=== PATIENT | female | born 1965 | race Caucasian/White ===

== ENCOUNTER 2018-04-03 12:36 | Emergency (ER) | payer OTHER ==
[2018-04-03] MEDS ORDERED: ASPIRIN 81 MG TABLET, CHEWABLE PO ONE (13:08)
[2018-04-03] MEDS ORDERED: NITROGLYCERIN 2% OINTMENT 1 GM PACKET TP ONE (13:08)
--- NOTE | 2018-04-03 13:09 | ER Document Report ---
ED Medical Screen (RME) - General Chief Complaint: Chest Pain Stated Complaint: CHEST PAIN Time Seen by Provider: 04/03/18 13:04 Notes: RAPID MEDICAL EVALUATION DISCLOSURE I have seen this patient as part of a Rapid Medical Evaluation and, if applicable, placed any initially appropriate orders. The patient will be seen and fully evaluated, including a full history and physical exam, by a provider ( in Main ED or Fast Track) when a room becomes available. 52-year-old female PMH CAD here with complaints of midsternal sharp chest pain radiating up to the right side of the neck and right shoulder ongoing for the past 1 hour. She was driving when the symptoms started. Symptoms worse with exertion but not breathing. She did take 1 baby aspirin earlier this morning but since symptom onset she has not taken anything for the pain. She only has slight pain at this time. She reports that she is scheduled to have a stent placed by Dr. Bush in the very near future. EXAM CTAB RRR TRAVEL OUTSIDE OF THE [place] IN LAST 30 DAYS: No Physical Exam - Vital signs Vitals: Temp Pulse Resp BP Pulse Ox 98.0 F 79 16 131/89 H 99 04/03/18 12:49 04/03/18 12:49 04/03/18 12:49 04/03/18 12:49 04/03/18 12:49 Course - Vital Signs Vital signs: Temp Pulse Resp BP Pulse Ox 98.0 F 79 16 131/89 H 99 04/03/18 12:49 04/03/18 12:49 04/03/18 12:49 04/03/18 12:49 04/03/18 12:49 Doctor's Discharge - Discharge Referrals: PAT HIDALGO NP [Primary Care Provider] - Follow up as needed
--- NOTE | 2018-04-03 13:37 | EKG REPORT ---
SEVERITY:- NORMAL ECG - SINUS RHYTHM : Confirmed by: Enmanuel Blackmon MD 03-Apr-2018 13:36:26
[2018-04-03 13:44] LABS: ABSOLUTE EOSINOPHILS # (AUTO) 0.1 10^3/uL (0.0-0.6); ABSOLUTE LYMPHOCYTES (AUTO) 1.4 10^3/uL (0.5-4.7); ABSOLUTE MONOCYTES (AUTO) 0.4 10^3/uL (0.1-1.4); BASOPHILS % (AUTO) 0.4 % (0-2); EOSINOPHILS % (AUTO) 1.7 % (0-6); HEMATOCRIT 41.9 % (36.0-47.0); HEMOGLOBIN 14.2 g/dL (12.0-15.5); LYMPHOCYTES % (AUTO) 23.9 % (13-45); MEAN CORPUSCULAR HGB CONC 33.9 g/dL (32.0-36.0); MEAN CORPUSCULAR VOLUME 83 fl (80-97); MONOCYTES % (AUTO) 6.8 % (3-13); PLATELET COUNT 230 10^3/uL (150-450); RED BLOOD COUNT 5.08 10^6/uL (3.72-5.28); RED CELL DISTRIBUTION WIDTH 13.5 % (11.5-14.0); SEGMENTED NEUTROPHILS % (AUTO) 67.2 % (42-78); TOTAL CELLS COUNTED % (AUTO) 100 %
--- NOTE | 2018-04-03 14:03 | RADIOLOGY REPORT (SQ) ---
EXAM DESCRIPTION: CHEST 2 VIEWS COMPLETED DATE/TIME: 04/03/2018 1:49 pm REASON FOR STUDY: CP SOB COMPARISON: PA chest 04/14/2009 Two-view chest 04/10/2009 EXAM PARAMETERS: NUMBER OF VIEWS: two views TECHNIQUE: Digital Frontal and Lateral radiographic views of the chest acquired. RADIATION DOSE: NA LIMITATIONS: none FINDINGS: LUNGS AND PLEURA: No opacities, masses or pneumothorax. No pleural effusion. MEDIASTINUM AND HILAR STRUCTURES: No masses or contour abnormalities. HEART AND VASCULAR STRUCTURES: Heart normal size. No evidence for failure. BONES: No acute findings. HARDWARE: None in the chest. OTHER: No other significant finding. IMPRESSION: NO ACUTE RADIOGRAPHIC FINDING IN THE CHEST. TECHNICAL DOCUMENTATION: JOB ID: [id number] [employer]- All Rights Reserved Reading location - IP/workstation name: [email or web address]
[2018-04-03 14:04] LABS: ANION GAP 14 (5-19); BLOOD UREA NITROGEN 15 mg/dL (7-20); CALCIUM 10.1 mg/dL (8.4-10.2); CARBON DIOXIDE 28 mmol/L (22-30); CHLORIDE 99 mmol/L (98-107); GLUCOSE 102 mg/dL (75-110); POTASSIUM 4.4 mmol/L (3.6-5.0); SODIUM 140.6 mmol/L (137-145)
[2018-04-03 14:15] LABS: NT PRO BNP 21 pg/mL (5-900); TROPONIN I < 0.012 ng/mL
[2018-04-03] MEDS ORDERED: ACETAMINOPHEN 325 MG TABLET PO ONE (14:47)
--- NOTE | 2018-04-03 16:09 | ER Document Report ---
ED General - General Chief Complaint: Chest Pain Stated Complaint: CHEST PAIN Time Seen by Provider: 04/03/18 13:04 Notes: Patient says that about 1230 today, while driving her car, she suddenly had some chest pain in the upper anterior neck down to the substernal region and into the epigastric region of her abdomen. She says that it felt like being stabbed with a knife. It lasted about 10 minutes and went away. At this time, she had stopped the car. She had another episode lasting about 10 minutes so she came to the emergency department. She says that she had a short similar discomfort, sharp like a knife, and the anterior chest while here in the waiting room and after it went away, she no longer had any subsequent chest pains. Patient says that she is scheduled for a cardiac cath next in [place]. The reason for the cath is that she had a stress test done about 3 weeks ago that was reportedly positive. The reason for the stress test was because of family history of stroke and heart disease and high cholesterol and the patient has high cholesterol as well. She has not had any chest pains or symptoms that suggest a heart problem. She is occasionally had similar sharp pains over the last year or 2, off and on. Denies any shortness of breath or difficulty breathing. Does have a headache, but they put nitroglycerin on her upper left chest while in the waiting area here. Patient has high blood pressure, high cholesterol, and depression. She takes a baby aspirin daily. Does not smoke. Has had an appendectomy, hysterectomy, cholecystectomy. Also surgery on her back. TRAVEL OUTSIDE OF THE [place] IN LAST 30 DAYS: No - Related Data Allergies/Adverse Reactions: acetaminophen [From Vicodin] Allergy (Verified 04/03/18 13:10) Beta-Blockers (Beta-Adrenergic Bloc Allergy (Verified 04/03/18 13:10) hydrocodone [From Vicodin] Allergy (Verified 04/03/18 13:10) Penicillins Allergy (Verified 04/03/18 13:10) Past Medical History - Social History Smoking Status: Never Smoker Chew tobacco use (# tins/day): No Frequency of alcohol use: None Drug Abuse: None Family History: Reviewed & Not Pertinent Patient has suicidal ideation: No Patient has homicidal ideation: No - Past Medical History Cardiac Medical History: Reports: Hx Hypercholesterolemia, Hx Hypertension Denies: Hx Coronary Artery Disease Endocrine Medical History: Denies: Hx Diabetes Mellitus Type 1 Psychiatric Medical History: Reports: Hx Depression - Denies anxiety Past Surgical History: Reports: Hx Appendectomy, Hx Cholecystectomy, Hx Hysterectomy, Hx Orthopedic Surgery Review of Systems - Review of Systems Notes: REVIEW OF SYSTEMS: CONSTITUTIONAL : Denies fever. EENT: Denies eye, ear, nose or mouth or throat pain or other symptoms. CARDIOVASCULAR: See HPI. No chest wall tenderness to press. RESPIRATORY: Denies cough, chest congestion, or shortness of breath. GASTROINTESTINAL: Denies abdominal pain or nausea, vomiting, or diarrhea. GENITOURINARY: Denies difficulty or painful urinating, urinary frequency, blood in urine. MUSCULOSKELETAL: Denies back or neck pain. Denies joint pain or swelling. SKIN: Denies rash or skin lesions. NEUROLOGICAL: Denies LOC or altered mental status. Has headache since Nitropaste applied.. Denies sensory loss or motor deficits. ALL OTHER SYSTEMS REVIEWED AND NEGATIVE. Physical Exam - Vital signs Vitals: Temp Pulse Resp BP Pulse Ox 98.0 F 79 16 131/89 H 99 04/03/18 12:49 04/03/18 12:49 04/03/18 12:49 04/03/18 12:49 04/03/18 12:49 Interpretation: Normal - Notes Notes: PHYSICAL EXAMINATION: GENERAL: Well-appearing, in no acute distress. Seems anxious to me. Vital signs are all normal. HEAD: Atraumatic, normocephalic. EYES: Pupils equal round and reactive to light, extraocular movements intact. ENT: oropharynx clear without exudates. Moist mucous membranes. NECK: Normal range of motion, supple. LUNGS: Breath sounds clear and equal bilaterally. No chest wall tenderness to press. HEART: Regular rate and rhythm without murmurs. ABDOMEN: Soft, nontender. No guarding or rebound. No masses. BACK: No tenderness throughout entire back. EXTREMITIES: Normal range of motion without pain. Negative Homans bilaterally. No pain or lower leg swelling. No evidence of blood clots. NEUROLOGICAL: Normal speech, normal gait. Normal sensory, motor, and reflex exams. Awake, alert, and oriented x3. Cranial nerves normal. PSYCH: Normal mood, normal affect. SKIN: Warm, dry, no rashes. Course - Re-evaluation Re-evalutation: 04/03/18 19:04 Patient's repeat troponin is identical to the first result. Patient is feeling fine. Has not had any more pain since she was put in her bed here and even after the nitroglycerin paste was removed, patient is not having any chest pains. - Vital Signs Vital signs: Temp Pulse Resp BP Pulse Ox 97.9 F 79 17 119/84 95 04/03/18 19:09 04/03/18 12:49 04/03/18 19:01 04/03/18 19:01 04/03/18 19:01 - Laboratory Result Diagrams: 04/03/18 13:30 04/03/18 13:30 Laboratory results interpreted by me: 04/03/18 13:30 Creatinine 0.43 L - Diagnostic Test Radiology results interpreted by wa: 04/03/18 16:13 Chest x-ray is normal. - EKG Interpretation by Ga EKG shows normal: Sinus rhythm Rate: Normal Rhythm: NSR Additional EKG results interpreted by wa: 04/03/18 16:13 EKG is normal. Discharge - Discharge Clinical Impression: Chest pain, non-cardiac Condition: Stable Disposition: HOME, SELF-CARE Additional Instructions: CHEST PAIN OF UNCLEAR CAUSE: The exact cause of your chest pain isn't clear. Fortunately, there is no evidence of a dangerous medical condition. Further testing may be required to find the source of the pain. Most often, we find that this pain is coming from the chest wall -- the muscles or rib joints in the chest. But chest pain can come from the lung and lung lining, the esophagus, the heart valves or heart lining, and even the stomach or gallbladder. Rest. Eat lightly until the pain is gone. We may prescribe medicine for pain and inflammation. You should call the physician immediately if the pain radiates to the shoulder, jaw or arms; if you start to run a fever or develop a cough; or if you develop shortness of breath, or other new or alarming symptoms. NORMAL EXAM AND WORKUP: At this time, your examination and workup show no significant abnormality. No significant abnormal physical findings were noted. All laboratory, EKG, and imaging (x-ray, CT scans, ultrasound) studies that were ordered show no significant abnormality. Although your examination and all studies that were ordered showed no significant abnormal finding, there are no examinations and no studies that are 100% accurate. There is always the possibility that some abnormality could exist and not be detected with physical examination or within the limits and capabilities of laboratory and other studies. You should return or follow up as you were instructed on your visit today for further evaluation if your symptoms do not resolve. CHEST WALL PAIN: Your chest pain may be coming from the chest wall. This is often caused by straining the muscles or joints in the chest during physical activity, direct trauma, coughing, or vigorous vomiting. Persons with arthritis are especially prone to this type of pain, due to inflammation of the cartilage joints near the breast bone. Occasionally, no cause can be found. Rest from strenuous physical activity. This kind of chest pain is usually made worse by movement of the chest. Depending on the symptoms, we may prescribe medicine for pain, muscle relaxation, and antiinflammatory effects. If the pain is new, and seems to be due to muscle strain, cold packs can help. Otherwise, apply gentle warmth to the painful area for 15 minutes every hour or two. You should call contact the doctor immediately if things change. Further evaluation is needed if you develop a fever or cough, if the nature of the pain changes, or if you become short of breath. ASPIRIN: Aspirin has been shown to have a beneficial effect on blood circulation by reducing the clotting effect of platelets in the blood. These beneficial effects can be achieved by taking just a single baby (81 mg) aspirin a day. It is recommended that any person over the age of forty take a single baby aspirin every day for heart and brain circulation, unless you are allergic to aspirin or have some significant bleeding disorder. It is strongly recommended that people who have proven cardiac or blood circulation disturbances should take a baby aspirin every day. FOLLOW-UP CARE: If you have been referred to a physician for follow-up care, call the physician s office for an appointment as you were instructed or within the next two days. If you experience worsening or a significant change in your symptoms, notify the physician immediately or return to the Emergency Department at any time for re-evaluation. Keep your appointment to have your cardiac catheterization done next week, as scheduled. If you develop new or worsening symptoms that are of concern to you, return for us to evaluate your condition at any time. Referrals: PAT HIDALGO NP [NURSE PRACTITIONER] - Follow up as needed
[2018-04-03 19:07] VITALS: BP 119/84
== END 2018-04-03 19:10 | disposition home or self-care (01) ==
LOC: ER 12:36
DX: R07.89 Other chest pain (principal); M54.2 Cervicalgia; R10.13 Epigastric pain; R51 Headache; I10 Essential (primary) hypertension; E78.00 Pure hypercholesterolemia, unspecified; Z79.82 Long term (current) use of aspirin; Z82.49 Family history of ischemic heart disease and other diseases of the circulatory system; Z82.3 Family history of stroke; Z88.6 Allergy status to analgesic agent; Z88.8 Allergy status to other drugs, medicaments and biological substances; Z88.5 Allergy status to narcotic agent; Z88.0 Allergy status to penicillin; Z90.49 Acquired absence of other specified parts of digestive tract
CPT/HCPCS: 36415; 71046; 80048; 83880; 84484; 85025; 93005; 93010; 99285

== ENCOUNTER 2019-07-09 23:07 | Emergency (ER) | payer OTHER ==
[2019-07-10] MEDS ORDERED: DIAZEPAM INJ 10 MG/2 ML DISP.SYRIN IV ONE (03:03)
[2019-07-10] MEDS ORDERED: KETOROLAC TROMETHAMINE INJ/PF 30 MG/1 ML SDV IV ONE (03:03)
--- NOTE | 2019-07-10 03:14 | ER Document Report ---
ED General - General Chief Complaint: Headache Stated Complaint: HEADACHE Time Seen by Provider: 07/10/19 02:46 Mode of Arrival: Medic Information source: Patient TRAVEL OUTSIDE OF THE [place] IN LAST 30 DAYS: No - HPI Patient complains to provider of: Headache and neck pain Onset: Other - 2 weeks ago Onset/Duration: Gradual Quality of pain: Sharp, Stabbing Severity: Severe Exacerbated by: Movement Relieved by: Denies Similar symptoms previously: No Recently seen / treated by doctor: Yes - Patient has been seen her primary care provider for her symptoms without re Notes: This is a 53-year-old female that presents to the emergency department complaining of headache and neck pain x2 weeks. Patient states that the symptoms started when she tripped and fell forward while carrying a 35 pound bag of dog food in her arms. Since the initial event, patient states she has had a headache and neck pain along with spasm in her posterior neck muscles that has worsened [place] Torad[place]. - Related Data Allergies/Adverse Reactions: acetaminophen [From Vicodin] Allergy (Verified 04/03/18 13:10) Beta-Blockers (Beta-Adrenergic Bloc Allergy (Verified 04/03/18 13:10) hydrocodone [From Vicodin] Allergy (Verified 04/03/18 13:10) Penicillins Allergy (Verified 04/03/18 13:10) Past Medical History - General Information source: Patient - Social History Smoking Status: Never Smoker Frequency of alcohol use: None Drug Abuse: None Family History: Reviewed & Not Pertinent Patient has suicidal ideation: No Patient has homicidal ideation: No - Past Medical History Cardiac Medical History: Reports: Hx Hypercholesterolemia, Hx Hypertension Denies: Hx Coronary Artery Disease Endocrine Medical History: Denies: Hx Diabetes Mellitus Type 1 Renal/ Medical History: Denies: Hx Peritoneal Dialysis Psychiatric Medical History: Reports: Hx Depression - Denies anxiety Past Surgical History: Reports: Hx Appendectomy, Hx Cholecystectomy, Hx Hysterectomy, Hx Orthopedic Surgery - back Review of Systems - Review of Systems Constitutional: See HPI EENT: No symptoms reported Cardiovascular: No symptoms reported Respiratory: No symptoms reported Gastrointestinal: No symptoms reported Genitourinary: No symptoms reported Female Genitourinary: No symptoms reported Musculoskeletal: See HPI, Muscle stiffness, Neck pain. denies: Deformity Skin: No symptoms reported Hematologic/Lymphatic: No symptoms reported Neurological/Psychological: See HPI, Headaches. denies: Confusion, Loss of power, Paralysis, Seizure, Lost consciousness -: Yes All other systems reviewed and negative Physical Exam - Vital signs Vitals: Temp Pulse Resp BP Pulse Ox 98.1 F 76 18 164/99 H 98 07/09/19 23:16 07/09/19 23:16 07/09/19 23:16 07/09/19 23:16 07/09/19 23:16 - General General appearance: Alert In distress: Moderate - HEENT Head: Normocephalic, Atraumatic Eyes: Normal Conjunctiva: Normal Cornea: Normal Mouth/Lips: Normal Mucous membranes: Normal Pharynx: Normal Neck: Other - Patient has diffuse muscle spasm on both sides of her posterior neck in the distribution of her trapezius muscle. The muscle is found to be markedly spastic and tender upon palpation. There is no crepitus, step-off or deformity noted on examination.. No: Posterior cervical chain, Meningismus, Neck mass, Thyroid nodule - Respiratory Respiratory status: No respiratory distress Chest status: Nontender Breath sounds: Normal Chest palpation: Normal - Cardiovascular Rhythm: Regular Heart sounds: Normal auscultation Murmur: No - Abdominal Inspection: Normal Distension: No distension Bowel sounds: Normal Tenderness: Nontender Organomegaly: No organomegaly - Back Back: Nontender. No: Deformity/step-off, CVA tenderness, Vertebra tenderness - Extremities General upper extremity: Normal inspection General lower extremity: Normal inspection - Neurological Neuro grossly intact: Yes Cognition: Normal Orientation: AAOx4 [place] Coma Scale Eye Opening: Spontaneous [place] Coma Scale Verbal: Oriented [place] Coma Scale Motor: Obeys Commands [place] Coma Scale Total: 15 Speech: Normal Motor strength normal: LUE, RUE, LLE, RLE Sensory: Normal - Psychological Associated symptoms: Normal affect, Normal mood - Skin Skin Temperature: Warm Skin Moisture: Dry Skin Color: Normal Course - Re-evaluation Re-evalutation: 07/10/19 05:32 Patient states she has had much improvement in terms of her pain and muscle spasms since receiving IV Toradol and IV Valium. Findings of head and neck CT discussed with patient. All questions posed by the patient have been answered. Plan of treatment, work note, follow-up, use of moist heat, emergency signs and symptoms/reasons to return to the emergency department all discussed with patient who expressed understanding of all these topics. Assessment: 53-year-old female presents with 2-week history of worsening headache and posterior neck muscle spasm after tripping and falling while ascending stairs at her home with a 35 pound bag of dog food in her arms. Patient history, objective findings and data, physical exam, response to treatment all are most suggestive of a clinical diagnosis of severe whiplash injury. Differential diagnosis: Closed head injury, meningitis, whiplash injury, trapezius muscle spasm. Plan: Discharge home with diagnosis of whiplash injury. Will prescribe Valium 5 mg tablets, 1/2 to 1 tablet every 8 hours as needed muscle spasm, dispense 12, no refills. Patient instructed not to drive, work, operate machinery when using diazepam. Patient also instructed to stop using Flexeril since it is not giving her relief of her symptoms. Patient instructed to follow-up with her PCP within 2 days. Patient instructed to return to the emergency department immediately if she has any worsening of symptoms despite taking medication as prescribed. Patient states understanding of instructions and treatment plan as they have been explained to her by this MD. - Vital Signs Vital signs: Temp Pulse Resp BP Pulse Ox 98.4 F 83 18 145/89 H 98 07/09/19 23:52 07/09/19 23:52 07/09/19 23:16 07/09/19 23:52 07/09/19 23:52 - Diagnostic Test Radiology reviewed: Reports reviewed Discharge - Discharge Clinical Impression: Whiplash injury syndrome Condition: Good Disposition: HOME, SELF-CARE Instructions: Neck Injury (Cervical Strain) ([facility]), Benzodiazepines ([facility]) Additional Instructions: Return to the Emergency Department without delay if any worse. Be certain to follow up with your primary care provider on 07/12/2019 Prescriptions: Diazepam [Valium 5 mg Tablet] 0.5 - 1 mg PO TIDP PRN #12 tablet PRN Reason: Muscle Spasms Forms: Return to Work
--- NOTE | 2019-07-10 04:56 | RADIOLOGY REPORT (SQ) ---
CT head without contrast on 07/10/2019 at 4:03 AM CLINICAL INDICATION: Severe headache, fall two weeks ago TECHNIQUE: Multiple axial images are obtained throughout the head without the administration of contrast. This exam was performed according to our departmental dose-optimization program, which includes automated exposure control, adjustment of the mA and/or kV according to patient size and/or use of iterative reconstruction technique. Total DLP is 1070.38 mGy*cm. COMPARISON: MRI from 08/14/2011 FINDINGS: There is no hydrocephalus. There is no CT evidence of acute infarct. There is no hemorrhage. There are no abnormal extra-axial fluid collections. There is no mass, mass effect or midline shift. No bony abnormality is noted. IMPRESSION: No acute intracranial abnormality.
--- NOTE | 2019-07-10 04:58 | RADIOLOGY REPORT (SQ) ---
CT cervical spine without contrast on 07/10/2019 at 4:05 AM CLINICAL INDICATION: Neck pain after recent fall TECHNIQUE: Multiple axial images are obtained throughout the cervical spine without the administration of contrast. Sagittal and coronal reformatted images are also performed and reviewed. This exam was performed according to our departmental dose-optimization program, which includes automated exposure control, adjustment of the mA and/or kV according to patient size and/or use of iterative reconstruction technique. Total DLP is 395.69 mGy*cm. COMPARISON: None FINDINGS: Reformatted images reveal normal alignment of the cervical spine. Minimal degenerative disc disease is noted in the lower cervical spine. There are no acute fractures. No definite disc herniation is noted. There is no prevertebral soft tissue swelling. IMPRESSION: No acute fracture or malalignment of the cervical spine.
[2019-07-10 06:09] VITALS: BP 125/88
== END 2019-07-10 06:09 | disposition home or self-care (01) ==
LOC: ER 23:07
DX: S13.4XXA Sprain of ligaments of cervical spine, initial encounter (principal); R51 Headache; X58.XXXA Exposure to other specified factors, initial encounter; E78.00 Pure hypercholesterolemia, unspecified; I10 Essential (primary) hypertension; Z90.710 Acquired absence of both cervix and uterus; Z88.6 Allergy status to analgesic agent; Z90.49 Acquired absence of other specified parts of digestive tract
CPT/HCPCS: 99284; 96374; 96375; 70450; 72125; J3360; J1885

== ENCOUNTER 2020-02-10 08:21 | Emergency (ER) | payer SELFPAY ==
--- NOTE | 2020-02-10 08:57 | ER Document Report ---
HPI - HPI Time Seen by Provider: 02/10/20 08:49 Notes: 54-year-old female presents emergency room for complaints of left hand and wrist pain after an a heat press accidentally hit her right hand and wrist last night on the lateral aspect of her hand. Patient states she took ibuprofen with some relief as well as icing. Denies any other area of injury or previous hand injuries. Pain is 3 out of 5 with movement, 0 out of 5 with rest. Denies fevers, chills, chest pain,palpitations, shortness of breath, dyspnea, nausea, vomiting, LH, dizziness, syncope, headaches, wheezing, ST, URI, neck pain, weakness, bowel or bladder dysfunction, saddle anesthesia, numbness or tingling in bilateral upper or lower extremities equally, muscle paralysis, weakness in bilateral upper or lower extremities equally or rash. Past Medical History - General Information source: Patient - Social History Smoking Status: Unknown if Ever Smoked Family History: Reviewed & Not Pertinent - Past Medical History Cardiac Medical History: Reports: Hx Hypercholesterolemia, Hx Hypertension Denies: Hx Coronary Artery Disease Endocrine Medical History: Denies: Hx Diabetes Mellitus Type 1 Renal/ Medical History: Denies: Hx Peritoneal Dialysis Psychiatric Medical History: Reports: Hx Depression - Denies anxiety Past Surgical History: Reports: Hx Appendectomy, Hx Cholecystectomy, Hx Hysterectomy, Hx Orthopedic Surgery - back Vertical Provider Document - CONSTITUTIONAL Agree With Documented VS: Yes Exam Limitations: No Limitations Notes: PHYSICAL EXAMINATION: reviewed vital signs by RN GENERAL: Well-appearing, well-nourished and in no acute distress. HEAD: Atraumatic, normocephalic. EYES: Pupils equal round and reactive to light, extraocular movements intact, conjunctiva are normal. ENT: Nares patent, oropharynx clear without exudates. Moist mucous membranes. NECK: Normal range of motion, supple without lymphadenopathy LUNGS: Breath sounds clear to auscultation bilaterally and equal. No wheezes rales or rhonchi. HEART: Regular rate and rhythm without murmurs ABDOMEN: Soft, nontender, nondistended abdomen. No guarding, no rebound. No masses appreciated. Female : deferred Musculoskeletal: Normal range of motion, no pitting or edema. No cyanosis. Noted left wrist pain with flexion, extension, inversion, eversion of wrist. digits in right and left with full aprom. Resolution Manager + 2 BUE equally. Snuffbox tenderness negative on left. radial pulses + 2 BUE equally. Negative kanavels sign. No open wounds or drainage from wrist. No vascular compromise. No body crepitus or focal area of TTP. Limited ROM with flexion, extension, ulnar/radial deviation . Motor and sensory function of ulnar, radial, medial nerves intact bilaterally and equally. NEUROLOGICAL: Cranial nerves grossly intact. Normal speech, normal gait. Normal sensory, motor exams PSYCH: Normal mood, normal affect. SKIN: Warm, Dry, normal turgor, no rashes or lesions noted. - INFECTION CONTROL TRAVEL OUTSIDE OF THE [place] IN LAST 30 DAYS: No Course - Re-evaluation Re-evalutation: 02/10/20 10:07 Afebrile vital stable no distress. Nurses notes reviewed. X-ray of left hand and left negative for any acute fracture dislocation or bone lesions. Patient placed in a left Velcro cock-up splint. Consent by patient given to place left cockup splint,. cms intact, sensory motor function intact in bilateral upper extremities prior to splint application fiberglass splint placed without incident. cms intact 20 minutes after splint application. Splint is in good alignment. Bilateral upper extremities with motor and sensory function intact 20 minutes after application. Pt stated that splint felt comfortable. Denies alternate between Tylenol and ibuprofen for low-grade control. Keep elevate above level of heart, switch over to heat from icing in approximately 2 days alternate every 20 minutes. After performing a Medical Screening Examination, I estimate there is LOW risk for OPEN FRACTURE, COMPARTMENT SYNDROME, DEEP VENOUS THROMBOSIS, ACUTE TENDON RUPTURE, or NEUROVASCULAR INJURY thus I consider the discharge disposition reasonable. I have reevaluated this patient multiple times and no significant life threatening changes are noted. The patient and I have discussed the diagnosis and risks, and we agree with discharging home to closely follow-up with their primary doctor or the referral orthopedist with the understanding that symptoms and presentations can change. We also discussed returning to the Emergency Department immediately if new or worsening symptoms occur. We have discussed the symptoms which are most concerning (e.g., changing or worsening pain, numbness, weakness) that necessitate immediate return - Vital Signs Vital signs: Temp Pulse Resp BP Pulse Ox 97.9 F 74 16 130/79 H 96 02/10/20 08:25 02/10/20 08:25 02/10/20 08:25 02/10/20 08:25 02/10/20 08:25 Discharge - Discharge Clinical Impression: Left hand pain, Left wrist pain Condition: Stable Disposition: HOME, SELF-CARE Instructions: Wrist Sprain ([facility]), Sprain ([facility]) Additional Instructions: X-rays your x-rays today were negative. You were placed in a Velcro splint to help support and immobilize your left hand and wrist. Please alternate between Tylenol and ibuprofen for pain control. Keep elevated pumping heart. If your pain is as severe as it is today 5 days from now, reconsider reevaluation and possible re-x-ray to look for any occult fractures Return immediately for any new or worsening symptoms. Follow up with primary care provider, call tomorrow to make followup appointment . Prescriptions: Ibuprofen [Ibu] 800 mg PO Q6HP PRN #20 tablet PRN Reason: Forms: Return to Work Referrals: SAMPSON SONI MD [ACTIVE STAFF] - Follow up as needed AURY GOLD MD [ACTIVE PROVISIONAL STAFF] - Follow up as needed
--- NOTE | 2020-02-10 09:48 | RADIOLOGY REPORT (SQ) ---
EXAM DESCRIPTION: HAND LEFT 3 VIEWS; WRIST LEFT 3 VIEWS IMAGES COMPLETED DATE/TIME: 02/10/2020 9:33 am REASON FOR STUDY: hard object flung back and hit hand/wrist, +pain COMPARISON: None. NUMBER OF VIEWS: Six views. TECHNIQUE: AP, lateral, and oblique radiographic images acquired of the left hand and left wrist. LIMITATIONS: None. FINDINGS: MINERALIZATION: Normal. BONES: No acute fracture or dislocation. No worrisome bone lesions. Normal alignment. SOFT TISSUES: No soft tissue swelling. No foreign body. OTHER: No other significant finding. IMPRESSION: No fracture or foreign body. TECHNICAL DOCUMENTATION: JOB ID: [id number] 2010 [employer]- All Rights Reserved Reading location - IP/workstation name: [email or web address]
--- NOTE | 2020-02-10 09:48 | RADIOLOGY REPORT (SQ) ---
EXAM DESCRIPTION: HAND LEFT 3 VIEWS; WRIST LEFT 3 VIEWS IMAGES COMPLETED DATE/TIME: 02/10/2020 9:33 am REASON FOR STUDY: hard object flung back and hit hand/wrist, +pain COMPARISON: None. NUMBER OF VIEWS: Six views. TECHNIQUE: AP, lateral, and oblique radiographic images acquired of the left hand and left wrist. LIMITATIONS: None. FINDINGS: MINERALIZATION: Normal. BONES: No acute fracture or dislocation. No worrisome bone lesions. Normal alignment. SOFT TISSUES: No soft tissue swelling. No foreign body. OTHER: No other significant finding. IMPRESSION: No fracture or foreign body. TECHNICAL DOCUMENTATION: JOB ID: [id number] 2010 [employer]- All Rights Reserved Reading location - IP/workstation name: [email or web address]
[2020-02-10 10:16] VITALS: BP 142/88
== END 2020-02-10 10:16 | disposition home or self-care (01) ==
LOC: ER 08:21
DX: M79.642 Pain in left hand (principal); M25.532 Pain in left wrist; W20.8XXA Other cause of strike by thrown, projected or falling object, initial encounter; I10 Essential (primary) hypertension
CPT/HCPCS: 99283